=== PATIENT | male | born 1980 | race African-American/Black ===

== ENCOUNTER 2021-10-17 10:26 | Emergency (ER) | payer SELFPAY ==
[2021-10-17 11:10] LABS: #Eosinphils 0.3 thou/uL (0.0-0.7); #Lymphocytes 2.3 thou/uL (1.20-3.40); #Monocytes 0.7 thou/uL (0.11-0.59); #Neutrophils 3.1 thou/uL (1.40-6.50); %Basophils 0.8 % (0.0-1.0); %Eosinophils 4.3 % (0.0-10.0); %Monocytes 10.5 % (0.0-10.0); %Neutrophils 48.4 % (42.0-75.0); Hemoglobin 15.1 g/dL (14.0-18.0); Mean Corpuscular Hemoglobin 31.8 pg (27.0-31.0); Mean Corpuscular Volume 91.1 fL (78.0-98.0); Mean Platelet Volume 7.7 fL (7.4-10.4); Platelet Count 246 thou/uL (130-400); RBC Distribution Width 12.7 % (11.5-14.5); Red Blood Cell (RBC) Count 4.73 mill/uL (4.70-6.10); White Blood Cell (WBC) Count 6.4 thou/uL (4.8-10.8)
[2021-10-17] MEDS ORDERED: Ondansetron ODT 4 MG TAB ONE (11:16)
[2021-10-17] MEDS ORDERED: Dicyclomine 20 MG/2 ML VIAL ONE (11:16)
[2021-10-17 11:29] LABS: ALT (SGPT) 37 U/L (8-55); AST (SGOT) 81 U/L (5-34); Albumin 4.2 g/dL (3.5-5.0); Alkaline Phosphatase 67 U/L (40-110); Anion Gap 14 mmol/L (10-20); BUN (Urea Nitrogen) 12 mg/dL (8.9-20.6); Bilirubin, Total 0.4 mg/dL (0.2-1.2); Calc. Creatinine Clearance 0 mL/min (70-130); Carbon Dioxide 23 mmol/L (22-29); Chloride 107 mmol/L (98-107); Globulin 3.2 g/dL (2.4-3.5); Glucose 90 mg/dL (70-105); Lipase 15 U/L (8-78); Magnesium 2.3 mg/dL (1.6-2.6); Protein, Total 7.4 g/dL (6.0-8.3); Sodium 140 mmol/L (136-145)
== END 2021-10-17 11:55 | disposition home or self-care (01) ==
LOC: ERS 10:26
DX: R19.7 Diarrhea, unspecified (principal); R11.2 Nausea with vomiting, unspecified; F17.210 Nicotine dependence, cigarettes, uncomplicated
CPT/HCPCS: 36415; 80053; 83690; 83735; 85025; 99284; J0500; Q0162